=== PATIENT | male | born 1955 | race African-American/Black ===

== ENCOUNTER 2022-04-16 19:30 | Emergency (ER) | payer OTHER, MEDICAID ==
[~2022-04-16] VITALS: Ht 177.8 cm; Wt 63.0 kg
[2022-04-16] MEDS: SODIUM CHLORIDE 0.9% 1,000 ML IV ONE (20:00)
[2022-04-16] MEDS: ACETAMINOPHEN 325MG TABLET PO ONE (21:30)
[2022-04-16 21:54] LABS: HEMATOCRIT. 34.8 % (42.0-52.0); HEMOGLOBIN. 11.2 g/dL (14.0-18.0); MEAN CORPUSCULAR HEMOGLOBIN 29.1 pg (28.0-32.0); MEAN CORPUSCULAR VOLUME 90.5 fL (80.0-94.0); MEAN PLATELET VOLUME 7.1 fl (7.4-10.4); PLATELET 365 x1000/uL (130-400); RED BLOOD CELL COUNT 3.84 mill/uL (4.7-6.1); RED CELL DISTRIBUTION WIDTH 18.8 % (11.6-14.6)
[2022-04-16 22:04] LABS: INR 1.2; PROTHROMBIN TIME 12.4 sec (9.6-11.0)
[2022-04-16 22:08] LABS: CHLORIDE 93 mEq/L (98-107)
[2022-04-16 22:10] LABS: PLATELET ESTIMATE NORMAL
[2022-04-16 22:14] LABS: ETHANOL BLOOD < 10 mg/dL
[2022-04-17] MEDS ORDERED: VANCOMYCIN 1G PREMIX 200 ML IV SCH (02:15)
[2022-04-17] MEDS ORDERED: PIPERACILLIN/TAZOBACTAM 3.375GM/50ML PREMIX IV ONE (02:15)
[2022-04-17] MEDS: PIPERACILLIN/TAZ 3.375G PREMIX 50 ML IV NR (02:45)
[2022-04-17] MEDS: VANCOMYCIN 1GM PMX (XELLIA) 200 ML IV NR (03:35)
[2022-04-17 08:09] VITALS: BP 127/60
== END 2022-04-17 08:17 | disposition short-term general hospital (02) ==
LOC: ER 19:30
DX: N28.9 Disorder of kidney and ureter, unspecified (principal); E11.65 Type 2 diabetes mellitus with hyperglycemia; I10 Essential (primary) hypertension; Z98.890 Other specified postprocedural states
CPT/HCPCS: 36415; 74176; 80053; 80320; 83605; 83690; 85025; 85610; 96365; 96367; 99285; J2543; J3370; J7030; G0480